=== PATIENT | female | born 1940 | race Caucasian/White ===

== ENCOUNTER 2016-11-28 12:36 | Emergency (ER) | payer MEDICARE, OTHER ==
--- NOTE | ~2016-11-28 | US85 ---
[facility]. [facility] A Service of [facility] & [facility] RADIOLOGY TEXT RESULTS PATIENT: NICOLÁS RIVAS LOCATION: SED : 38 UNIT #: [id number] AGE: [address]: MYRON DURAN SEX: F ORDER DR: [id number] [place] [id number] E MR#: [id number] Acc #: [id number] NAME: NICOLÁS RIVAS : 1940 SEX: F STUDY DATE/TIME: 11/28/2016 14:15 UNIT: SED ROOM: STUDY DESCRIPTION: [facility] or [facility] Attending Physician: Myron Duran Aprn Ordering Physician: Myron Duran Aprn Primary Care Physician: Myron Baca M.D. MEDICAL IMAGING REPORT This report is preliminary unless electronic signature is present. EXAM Right lower extremity venous Doppler HISTORY Right ankle pain and swelling and redness for 1 week. Color-flow browne-scale compression Doppler spectral waveform analysis was performed of the deep and superficial veins of the right leg. Examination shows normal compressibility of the veins throughout. No intraluminal filling defects are seen. There is normal phasicity of flow. CONCLUSION Negative right lower extremity venous Doppler Dictated by... Garett Watson M.D. THIS IS AN ELECTRONICALLY VERIFIED REPORT Garett Watson M.D. at 12/02/2016 7:15 AM JOSSIE/phylicia TD: 11/28/2016 21:40 JOB #: [id number] MEDICAL IMAGING REPORT Page 1 of 1
[~2016-11-28 12:36] MED LIST: ACIPHEX20 MG PO; ACTONEL PO; ADVAIR 5001 DISK W/D PO; ASPIRIN PO; ATORVASTATIN CA10 MG PO; BENADRYL ALLERG25 M1 PO; CALCIUM 500 + D1 TAB PO; CLOBETASOL E 0.60 GM TOP; DIOVAN HCT 160/1 TAB PO; EYE DROPS15 M1 OP; FIBER WELL GUMMIES PO; GLUCOSAMINE CHON PO; LANSOPRAZOLE30 M2 PO; MIRAPEX0.25 MG PO; MSM; NEXIUM PO; OS-CAL 500+D31 EACH PO; VITAL-D RX TABL1 TAB PO
[2016-11-28] MEDS ORDERED: COREG3.125 M1 (12:46)
[2016-11-28] MEDS ORDERED: ADVAIR 250-501 EAC1 (12:46)
[2016-11-28] MEDS ORDERED: HEARTBURN RELIE75 M2 (12:46)
[2016-11-28] MEDS ORDERED: DOXY 100100 MG (12:47)
== END 2016-11-28 15:30 | disposition home or self-care (01) ==
LOC: SED 12:36
DX: L03.115 Cellulitis of right lower limb (principal); I10 Essential (primary) hypertension; E78.5 Hyperlipidemia, unspecified; J45.909 Unspecified asthma, uncomplicated; Z90.49 Acquired absence of other specified parts of digestive tract; Z90.710 Acquired absence of both cervix and uterus; Z98.51 Tubal ligation status; Z88.1 Allergy status to other antibiotic agents; Z88.8 Allergy status to other drugs, medicaments and biological substances; Z79.899 Other long term (current) drug therapy
CPT/HCPCS: 93971; 99284

== ENCOUNTER 2016-12-01 10:59 | Emergency (ER) | payer MEDICARE, OTHER ==
--- NOTE | ~2016-12-01 | US85 ---
[facility] A Service of [facility] & [facility] RADIOLOGY TEXT RESULTS PATIENT: NICOLÁS RIVAS LOCATION: [facility] : 38 UNIT #: [id number] AGE: [address]: Leonidas Mcdonnell DO SEX: F ORDER DR: [id number] [facility] [address] [place], [place] [address] [id number] E MR#: [id number] Acc #: [id number] NAME: NICOLÁS RIVAS : 1940 SEX: F STUDY DATE/TIME: 12/01/2016 12:48 UNIT: [facility] ROOM: STUDY DESCRIPTION: [facility] or [facility] Stdy Attending Physician: Leonidas Mcdonnell D.O. Ordering Physician: Leonidas Mcdonnell D.O. Primary Care Physician: Bernardino Baca M.D. MEDICAL IMAGING REPORT This report is preliminary unless electronic signature is present EXAM Unilateral lower extremity venous ultrasound HISTORY Swelling, pain, redness right leg 1 week. TECHNIQUE Venous ultrasound examination of the right lower extremity was performed using grayscale, spectral Doppler and color flow Doppler imaging. FINDINGS The examination is negative. There is no evidence of right lower extremity deep venous thrombus from the groin to the lower calf. Visualized greater saphenous vein is also patent. IMPRESSION Negative examination. No evidence of right lower extremity deep venous thrombosis. Dictated by... Garett Mahmood M.D. THIS IS AN ELECTRONICALLY VERIFIED REPORT Garett Mahmood M.D. at 12/02/2016 6:12 PM Flaca TD: 12/01/2016 14:01 JOB #: [id number] MEDICAL IMAGING REPORT Page 1 of 1 COPY
--- NOTE | ~2016-12-01 | CR253 ---
[facility]. [facility] A Service of [facility] & [facility] RADIOLOGY TEXT RESULTS PATIENT: NICOLÁS RIVAS LOCATION: [facility] : 38 UNIT #: [id number] AGE: [address]: Leonidas Mcdonnell DO SEX: F ORDER DR: [id number] [facility] [address] [place], [place] [address] [id number] E MR#: [id number] Acc #: [id number] NAME: NICOLÁS RIVAS : 1940 SEX: F STUDY DATE/TIME: 12/01/2016 11:59 UNIT: [facility] ROOM: STUDY DESCRIPTION: CR Tibia and Fibula 2 Views Rt Attending Physician: Leonidas Mcdonnell D.O. Ordering Physician: Leonidas Mcdonnell D.O. Primary Care Physician: Bernardino Baca M.D. MEDICAL IMAGING REPORT This report is preliminary unless electronic signature is present EXAM Tibia-fibula series, right, 12/01/2016 HISTORY Redness on top of right tib-fib shaft started Tuesday. No known injury. FINDINGS AP and lateral radiographs of the right tibia and fibula are presented. No fracture or malalignment. The knee and ankle joints appear intact. Mild to moderate narrowing of all 3 joint space compartments in their visualized extent. Question of some chondrocalcinosis in the lateral knee joint compartment. There are soft tissue calcifications in the distal pretibial soft tissues. There is no soft tissue defect, subcutaneous air or radiodense foreign body. Please correlate with exam. Dictated by... Garett Mahmood M.D. THIS IS AN ELECTRONICALLY VERIFIED REPORT Garett Mahmood M.D. at 12/02/2016 6:12 PM DARIN/sarah TD: 12/01/2016 14:24 JOB #: [id number] MEDICAL IMAGING REPORT Page 1 of 1 COPY
[~2016-12-01 10:59] MED LIST changes: +ADVAIR 250-501 EAC1; +COREG3.125 M1; +DOXY 100100 MG; +HEARTBURN RELIE75 M2
[2016-12-01 11:41] LABS: BASOPHIL# 0.1 X10e3 (0-0.3); BASOPHIL% 1.1 % (0-2.5); DIFF IND NO; EOSINOPHIL# 0.1 X10e3 (0-0.7); EOSINOPHIL% 1.2 % (0.0-7.0); HEMOGLOBIN 14.1 gm/dL (12.0-16.0); LYMPHOCYTE# 1.5 X10e3 (1.0-3.5); LYMPHOCYTE% 18.8 % (17.0-45.0); MEAN CELL VOLUME 97.6 FL (83-96); MEAN CORPUSCULAR HEMOGLOBIN 32.1 PG (28-34); MEAN CORPUSCULAR HGB CONC 32.9 g/dL (30-36); MEAN PLATELET VOLUME 8.8 FL (6.5-11.5); MONOCYTE# 0.7 X10e3 (0-1.0); NEUTROPHIL# 5.8 X10e3 (1.5-7.1); NEUTROPHIL% 70.9 % (40-75); PLATELET COUNT 182 X10e3 (140-420); RED CELL DISTRIBUTION WIDTH 13.5 % (11.0-15.5); WHITE BLOOD COUNT 8.2 X10e3 (4.0-10.5)
[2016-12-01 12:02] LABS: ALBUMIN SERUM 3.5 g/dL (3.5-5.0); BILIRUBIN, DIRECT 0.2 mg/dL (0.0-0.2); BILIRUBIN,INDIRECT 1.4 mg/dL (0.0-0.9); BILIRUBIN,TOTAL 1.6 mg/dL (0.2-2.0); CREATININE SERUM 0.8 mg/dL (0.6-1.4); GLOM FILT RATE Estimated 70.7 mL/min (>60); POTASSIUM 4.4 mmol/L (3.5-5.1); PROTEIN TOTAL SERUM 6.2 g/dL (6.0-8.3)
[2016-12-01 12:06] LABS: PARTIAL THROMBOPLASTIN TIME 27.8 SECONDS (23.5-31.3); PROTHROMBIN TIME (PATIENT) 10.9 SECONDS (10.0-11.7)
== END 2016-12-01 15:14 | disposition home or self-care (01) ==
LOC: CED 10:59
PROVIDERS: Emergency Medicine
DX: L03.115 Cellulitis of right lower limb (principal); E78.5 Hyperlipidemia, unspecified; J44.9 Chronic obstructive pulmonary disease, unspecified; Z90.710 Acquired absence of both cervix and uterus; Z98.51 Tubal ligation status; Z88.8 Allergy status to other drugs, medicaments and biological substances
CPT/HCPCS: 73590; 80048; 80076; 84484; 85025; 85610; 85730; 93971; 99284